=== PATIENT | female | born 1960 | race Caucasian/White ===

== ENCOUNTER 2016-11-13 11:03 | Emergency (ER) | payer OTHER ==
--- NOTE | 2016-11-13 12:33 | ED ---
General Adult HPI - General Chief complaint: Extremity Injury, Upper Stated complaint: Fell/hand injury Time Seen by Provider: 11/13/16 12:15 Source: patient, RN notes reviewed Mode of arrival: ambulatory Limitations: no limitations - History of Present Illness Initial comments: Patient 56-year-old female who presents emergency room today with a chief complaint of a fall that occurred earlier today. She does admit to a fall to outstretched hand on the left side. Admitting team pain over the left thumb. Denies any head injury or loss conscious. Denies any other complaints. States pain to the left thumb is worse with certain movements. Patient denies any recent fever, chills, shortness of breath, chest pain, back pain, abdominal pain , nausea or vomiting, numbness or tingling, dysuria or hematuria, constipation or diarrhea, headaches or visual changes, or any other complaints. - Related Data Home Medications Medication Instructions Recorded Confirmed ALPRAZolam [ALPRAZolam] 1 mg PO TID PRN 11/13/16 11/13/16 Albuterol Sulfate [Ventolin HFA] 2 puff INHALATION RT-Q6H PRN 11/13/16 11/13/16 Beclomethasone Dipropionate [Qvar 1 puff INHALATION RT-BID 11/13/16 11/13/16 40 mcg] Cyclobenzaprine [Flexeril] 10 mg PO HS 11/13/16 11/13/16 Hydrocodone/Acetaminophen [Williams 1 tab PO Q6H PRN 11/13/16 11/13/16 10-325] Mirtazapine [Mirtazapine] 15 mg PO HS 11/13/16 11/13/16 Sertraline HCl [Sertraline HCl] 100 mg PO HS 11/13/16 11/13/16 Simvastatin [Simvastatin] 10 mg PO HS 11/13/16 11/13/16 Allergies Allergy/AdvReac Type Severity Reaction Status Date / Time meperidine [From Demerol] Allergy Nausea & Verified 11/13/16 12:26 Vomiting Review of Systems ROS Statement: Those systems with pertinent positive or pertinent negative responses have been documented in the HPI. ROS Other: All systems not noted in ROS Statement are negative. Past Medical History Past Medical History: No Reported History, Cancer, Hyperlipidemia Additional Past Medical History / Comment(s): neuropathy History of Any Multi-Drug Resistant Organisms: None Reported Past Surgical History: Breast Surgery, Hysterectomy, Orthopedic Surgery Past Psychological History: Depression Smoking Status: Current every day smoker Past Alcohol Use History: Occasional Past Drug Use History: Marijuana General Exam - General Exam Comments Initial Comments: General: The patient is awake and alert, in no distress, and does not appear acutely ill. Neck: The neck is supple, there is no tenderness or JVD. Cardiovascular: There is a regular rate and rhythm. No murmur, rub or gallop is appreciated. Respiratory: Lungs are clear to auscultation, respirations are non-labored, breath sounds are equal. No wheezes, stridor, rales, or rhonchi. Musculoskeletal: Normal appearance left thumb. No obvious deformity. Shows good range of motion. Tender to palpation over the PIP joint and first metacarpal. Sensation intact with pulses equal bilaterally 2+. Strength 5/5. Neurological: A&O x 3. CN II-XII intact, There are no obvious motor or sensory deficits. Coordination appears grossly intact. Speech is normal. Skin: Skin is warm and dry and no rashes or lesions are noted. Psychiatric: Normal mood and affect. Limitations: no limitations Course Vital Signs 11/13/16 11:12 Temperature 98.6 F Pulse Rate 68 Respiratory 18 Rate Blood Pressure 132/68 O2 Sat by Pulse 99 Oximetry Medical Decision Making - Medical Decision Making Patient reexamined at this time shows no signs of distress. No tenderness over the DIP area. No tenderness in snuffbox. Patient's x-ray reviewed shows no acute fracture dislocation. Patient will be discharged home advised to follow- up family doctor or orthopedics if symptoms persist for repeat x-rays in 7-10 days. Advised continued ice elevate. Disposition Clinical Impression: Hand contusion Disposition: HOME SELF-CARE Condition: Good Instructions: Contusion in Adults (ED) Additional Instructions: Please continue to ice elevate the affected areas 4 times a day for 20 minutes at time. Please follow-up with the family doctor or orthopedics in 7-10 days for repeat x-rays if symptoms persist. Please return to emergency room if the symptoms increase or worsen or for any other concerns. Referrals: Amaury Brown MD [Primary Care Provider] - 1-2 days Pantera Han MD [STAFF PHYSICIAN] - 1-2 days Time of Disposition: 13:12
--- NOTE | 2016-11-13 12:53 | XR ---
Left hand HISTORY: Trauma and pain Reviews of the left and correlated to prior left hand August 2012 Geode formation is suspected at the proximal first metacarpal, there is some joint space loss and hyp ertrophic change. Alignment is maintained. Some mild degenerative change also suspected at the metaca rpophalangeal joint of the first digit. Punctate ossific density present at the proximal interphalang eal joint of the third digit volar aspect is well-corticated and not felt likely to be acute. IMPRESSION: Osteoarthritis. No acute fracture or dislocation is suspected as above.
[2016-11-13 13:24] VITALS: BP 143/78; PULSE 64; RESP 16; TEMP 97.8
== END 2016-11-13 13:39 | disposition home or self-care (01) ==
LOC: EC 11:03
DX: S60.222A Contusion of left hand, initial encounter (principal); W19.XXXA Unspecified fall, initial encounter; Z79.899 Other long term (current) drug therapy; Z79.51 Long term (current) use of inhaled steroids; Z88.5 Allergy status to narcotic agent; E78.5 Hyperlipidemia, unspecified; F32.9 Major depressive disorder, single episode, unspecified; F17.200 Nicotine dependence, unspecified, uncomplicated
CPT/HCPCS: 99283

== ENCOUNTER 2016-12-03 16:53 | Emergency (ER) | payer OTHER ==
[2016-12-03 17:38] VITALS: BP 170/80; PULSE 71; RESP 18; TEMP 98.7
--- NOTE | 2016-12-03 17:40 | ED ---
General Adult HPI - General Chief complaint: ENT Stated complaint: Sore Throat Time Seen by Provider: 12/03/16 17:35 Source: patient, RN notes reviewed Mode of arrival: ambulatory Limitations: no limitations - History of Present Illness Initial comments: Patient 56-year-old female who presents emergency room today with a chief complaint of a sore throat that started yesterday. She does admit that hurts when she swallows. Describes it as "glass" backward throat. Patient admits to a mild cough. She denies any complaints associated symptoms. Patient denies any recent fever, chills, shortness of breath, chest pain, back pain, abdominal pain, nausea or vomiting, numbness or tingling, dysuria or hematuria, constipation or diarrhea, headaches or visual changes, or any other complaints. - Related Data Home Medications Medication Instructions Recorded Confirmed ALPRAZolam [ALPRAZolam] 1 mg PO TID PRN 11/13/16 11/13/16 Albuterol Sulfate [Ventolin HFA] 2 puff INHALATION RT-Q6H PRN 11/13/16 11/13/16 Beclomethasone Dipropionate [Qvar 1 puff INHALATION RT-BID 11/13/16 11/13/16 40 mcg] Cyclobenzaprine [Flexeril] 10 mg PO HS 11/13/16 11/13/16 Hydrocodone/Acetaminophen [Bradford 1 tab PO Q6H PRN 11/13/16 11/13/16 10-325] Mirtazapine [Mirtazapine] 15 mg PO HS 11/13/16 11/13/16 Sertraline HCl [Sertraline HCl] 100 mg PO HS 11/13/16 11/13/16 Simvastatin [Simvastatin] 10 mg PO HS 11/13/16 11/13/16 Allergies Allergy/AdvReac Type Severity Reaction Status Date / Time meperidine [From Demerol] Allergy Nausea & Verified 12/03/16 17:38 Vomiting Review of Systems ROS Statement: Those systems with pertinent positive or pertinent negative responses have been documented in the HPI. ROS Other: All systems not noted in ROS Statement are negative. Past Medical History Past Medical History: No Reported History, Cancer, Hyperlipidemia Additional Past Medical History / Comment(s): neuropathy History of Any Multi-Drug Resistant Organisms: None Reported Past Surgical History: Breast Surgery, Hysterectomy, Orthopedic Surgery Past Psychological History: Depression Smoking Status: Current every day smoker Past Alcohol Use History: Occasional Past Drug Use History: Marijuana General Exam - General Exam Comments Initial Comments: General: The patient is awake and alert, in no distress, and does not appear acutely ill. Eye: Pupils are equal, round and reactive to light, extra-ocular movements are intact. No nystagmus. There is normal conjunctiva bilaterally. No signs of icterus. Ears, nose, mouth and throat: There are moist mucous membranes and no oral lesions. Mild redness erythema to the posterior pharynx. Patient swallows without difficulty. No exudate. TMs clear bilaterally. Neck: The neck is supple, there is no tenderness or JVD. Cardiovascular: There is a regular rate and rhythm. No murmur, rub or gallop is appreciated. Respiratory: Lungs are clear to auscultation, respirations are non-labored, breath sounds are equal. No wheezes, stridor, rales, or rhonchi. Musculoskeletal: Normal ROM, no tenderness. Strength 5/5. Sensation intact. Pulses equal bilaterally 2+. Neurological: A&O x 3. CN II-XII intact, There are no obvious motor or sensory deficits. Coordination appears grossly intact. Speech is normal. Skin: Skin is warm and dry and no rashes or lesions are noted. Psychiatric: Cooperative, appropriate mood & affect, normal judgment. Limitations: no limitations Course Vital Signs 12/03/16 17:36 Temperature 98.7 F Pulse Rate 71 Respiratory 18 Rate Blood Pressure 170/80 O2 Sat by Pulse 99 Oximetry Medical Decision Making - Medical Decision Making Patient's strep test negative. Results were discussed with patient. Advised use [id number] medications. Advised to return if any symptoms increase worsen or for any other concerns. - Lab Data Lab Results 12/03/16 Range/Units 17:42 Group A Strep Rapid Negative (Negative) Disposition Clinical Impression: Acute pharyngitis Disposition: HOME SELF-CARE Condition: Good Instructions: Pharyngitis (ED) Additional Instructions: Please use [id number] medications for symptoms. Please follow-up family doctor over the next 2-5 days symptoms are unimproved. Please return to emergency room if symptoms increase worsen or for any other concerns. Time of Disposition: 18:19
== END 2016-12-03 18:32 | disposition home or self-care (01) ==
LOC: EC 16:53
DX: J02.9 Acute pharyngitis, unspecified (principal); F32.9 Major depressive disorder, single episode, unspecified; G62.9 Polyneuropathy, unspecified; E78.5 Hyperlipidemia, unspecified; F17.200 Nicotine dependence, unspecified, uncomplicated; Z79.899 Other long term (current) drug therapy; Z88.5 Allergy status to narcotic agent
CPT/HCPCS: 87081; 87430; 99283

== ENCOUNTER → 2017-09-13 | Outpatient (CLI) | payer OTHER ==
--- NOTE | 2017-09-13 13:56 | MM ---
Reason for exam: additional evaluation requested from prior study. Last mammogram was performed 1 year ago. History: Patient has history of breast cancer at age 43. Benign stereotactic core biopsy of the right breast, 2006. Lumpectomy of the right breast, 2002. Radiation therapy of the right breast, 2002. Malignant stereotactic core biopsy of the right breast, 2001. Took hormonal contraceptives for 3 years. Took antineoplastic for 5 years. Physical Findings: Nurse did not find any significant physical abnormalities on exam. MG Diagnostic Mammo w CAD [facility] Bilateral CC and MLO view(s) were taken. Prior study comparison: September 13, 2016, bilateral MG diagnostic mammo w CAD BR[facility]. September 09, 2015, bilateral MG 3d diag mammo w/cad BRITTANEY. There are scattered fibroglandular densities. Finding #1: Stable architectural distortion in the right breast consistent with biopsy/surgery. Finding #2: There are typically benign calcifications in both breasts. These results were verbally communicated with the patient and result sheet given to the patient on 09/13/17. ASSESSMENT: Benign, BI-RAD 2 RECOMMENDATION: Routine screening mammogram of both breasts in 1 year.
== END | disposition home or self-care (01) ==
LOC: RADMAMWWP 12:50
PROVIDERS: ATTEND Family Medicine
DX: Z08 Encounter for follow-up examination after completed treatment for malignant neoplasm (principal); Z85.3 Personal history of malignant neoplasm of breast

== ENCOUNTER → 2018-09-19 | Outpatient (CLI) | payer OTHER ==
--- NOTE | 2018-09-23 10:50 | MM ---
Reason for exam: screening (asymptomatic). Last mammogram was performed 1 year ago. History: Patient has history of breast cancer at age 43. Benign stereotactic core biopsy of the right breast, 2006. Lumpectomy of the right breast, 2002. Radiation therapy of the right breast, 2002. Malignant stereotactic core biopsy of the right breast, 2001. Took hormonal contraceptives for 3 years. Took antineoplastic for 5 years. Physical Findings: A clinical breast exam by your physician is recommended on an annual basis and results should be correlated with mammographic findings. MG Screening Mammo w CAD Bilateral CC and MLO view(s) were taken. Prior study comparison: September 13, 2017, bilateral MG diagnostic mammo w CAD BR[facility]Y. September 13, 2016, bilateral MG diagnostic mammo w CAD BR[facility]Y. There are scattered fibroglandular densities. Post surgical and post therapy changes right breast. Dystrophic calcifications redemonstrated at the surgical site. No significant changes when compared with prior studies. ASSESSMENT: Benign, BI-RAD 2 RECOMMENDATION: Routine screening mammogram of both breasts in 1 year.
== END ==
LOC: RADMAMWWP 14:59
PROVIDERS: ATTEND Family Medicine
DX: Z12.31 Encounter for screening mammogram for malignant neoplasm of breast (principal); Z80.3 Family history of malignant neoplasm of breast
CPT/HCPCS: 77067

== ENCOUNTER → 2019-10-01 | Outpatient (CLI) | payer MEDICARE, OTHER ==
--- NOTE | 2019-10-02 13:59 | MM ---
Reason for exam: screening (asymptomatic). Last mammogram was performed 1 year ago. History: Patient has history of breast cancer at age 43. Benign stereotactic core biopsy of the right breast, 2006. Lumpectomy of the right breast, 2002. Radiation therapy of the right breast, 2002. Malignant stereotactic core biopsy of the right breast, 2001. Took hormonal contraceptives for 3 years. Took antineoplastic for 5 years. Physical Findings: A clinical breast exam by your physician is recommended on an annual basis and results should be correlated with mammographic findings. MG 3D Screening Mammo W/Cad Bilateral CC, MLO, and XCCL view(s) were taken. Prior study comparison: September 19, 2018, bilateral MG screening mammo w CAD. September 13, 2017, bilateral MG diagnostic mammo w CAD BR[facility]. There are scattered fibroglandular densities. There is a stable 6mm left upper outer quadrant mass back to 2016. No suspicious abnormality. Right post therapy change. No significant changes when compared with prior studies. ASSESSMENT: Benign, BI-RAD 2 RECOMMENDATION: Routine screening mammogram of both breasts in 1 year.
== END | disposition home or self-care (01) ==
LOC: RADMAMWWP 11:02
PROVIDERS: ATTEND Family Medicine
DX: Z12.31 Encounter for screening mammogram for malignant neoplasm of breast (principal); Z85.3 Personal history of malignant neoplasm of breast
CPT/HCPCS: 77063; 77067

== ENCOUNTER 2019-11-12 06:54 | Day surgery (SDC) | payer MEDICARE, OTHER ==
[2019-11-10 16:17] VITALS: BMI 43.2
[~2019-11-12 06:54] MED LIST: LACTATED RINGERS 1,000 ML IV SCH
[2019-11-12 07:12] VITALS: TEMP 97.8
[2019-11-12 07:23] LABS: Glucose,Whole Blood 115 mg/dL (75-99)
[2019-11-12] MEDS ORDERED: PROPOFOL 10 MG/ML 20 ML VIAL IV ONE (07:38)
[2019-11-12 08:34] VITALS: RESP 16
--- NOTE | 2019-11-12 08:34 | P.PCN ---
Date of Procedure: 11/12/19 Description of Procedure: BRIEF HISTORY: Patient is a 51-year-old female presenting for outpatient colonoscopy in evaluation of blood in her stool. Denies any change in bowel habits, abdominal pain or family history of colon cancer. No prior colonoscopies reported. PROCEDURE PERFORMED: Colonoscopy with polypectomy . PREOPERATIVE DIAGNOSIS: Blood in stool, no prior colonoscopies. ESTIMATED BLOOD LOSS: Minimal. IV sedation per Anesthesia. PROCEDURE: After informed consent was obtained, the patient, was brought into the endoscopy unit. IV sedation was administered by Anesthesia under continuous monitoring. Digital rectal examination was normal. Initially the Olympus CF-190 flexible video colonoscope was then inserted in the rectum, gradually advanced into the cecum without any difficulty. Careful examination was performed as the scope was gradually being withdrawn. Ileocecal valve and the appendiceal orifice were visualized and appeared normal. Prep was excellent. Mucosa of the cecum, ascending colon, transverse colon, descending colon, sigmoid colon, and rectum appeared normal. a few scattered small diverticula noted in the left colon. Diminutive 2 mm ascending colon polyp removed with cold forcep polypectomy. Diminutive 2 mm descending colon polyp removed with cold forcep polypectomy. Diminutive 3 mm splenic flexure polyp removed with cold forcep polypectomy. 2 diminutive sigmoid colon polyps measuring 2-3 mm in size removed with cold forcep polypectomy. 2 diminutive rectal polyps measuring 2 and 3 mm in size with forcep polypectomy. Retroflexion was performed in the rectum and no lesions were seen. The patient tolerated the procedure well. IMPRESSION: Seven diminutive polyps measuring 2-3 mm in size removed from the descending colon, ascending colon, splenic flexure, sigmoid colon and rectum. Mild left colonic diverticulosis. RECOMMENDATIONS: Findings of this examination were discussed with the patient and her family. Okay to resume diet and medications. Await pathology from polypectomies. Repeat colonoscopy in 3-5 years pending pathology from polypectomies.
[2019-11-12 08:56] LABS: Glucose,Whole Blood 106 mg/dL (75-99)
[2019-11-12 08:57] VITALS: BP 116/78; PULSE 60
== END 2019-11-12 09:15 | disposition home or self-care (01) ==
LOC: ORWHC2ENDO 06:54
PROVIDERS: ATTEND Internal Medicine
DX: D12.2 Benign neoplasm of ascending colon (principal); D12.4 Benign neoplasm of descending colon; D12.3 Benign neoplasm of transverse colon; K63.5 Polyp of colon; K62.1 Rectal polyp; K57.31 Diverticulosis of large intestine without perforation or abscess with bleeding; E11.40 Type 2 diabetes mellitus with diabetic neuropathy, unspecified; Z88.5 Allergy status to narcotic agent; Z79.891 Long term (current) use of opiate analgesic; Z79.899 Other long term (current) drug therapy; Z79.84 Long term (current) use of oral hypoglycemic drugs; Z98.890 Other specified postprocedural states; Z90.710 Acquired absence of both cervix and uterus; E78.5 Hyperlipidemia, unspecified; Z86.718 Personal history of other venous thrombosis and embolism; J44.9 Chronic obstructive pulmonary disease, unspecified; Z97.2 Presence of dental prosthetic device (complete) (partial); Z91.89 Other specified personal risk factors, not elsewhere classified
CPT/HCPCS: 88305; 45380; J2704